=== PATIENT | female | born 1990 | race Caucasian/White ===

== ENCOUNTER 2018-04-29 21:10 | Emergency (ER) | payer BC, OTHER ==
[2018-04-29] MEDS ORDERED: diphenhydrAMINE 50 MG/ML VIAL ONE (22:11)
[2018-04-29] MEDS ORDERED: Ketorolac Tromethamine 30 MG/ML VIAL ONE (22:11)
[2018-04-29] MEDS ORDERED: Metoclopramide HCl 10 MG/2 ML VIAL ONE (22:11)
[2018-04-29 22:42] LABS: Hemoglobin 13.5 g/dL (12.0-16.0); Mean Corpuscular HGB CONC 34.2 g/dL (32.0-36.0); Mean Corpuscular Hemoglobin 30.3 pg (27.0-31.0); Mean Corpuscular Volume 88.7 fL (78.0-98.0); Mean Platelet Volume 7.6 fL (7.4-10.4); Platelet Count 354 thou/uL (130-400); RBC Distribution Width 11.5 % (11.5-14.5); Red Blood Cell (RBC) Count 4.47 mill/uL (4.20-5.40); White Blood Cell (WBC) Count 20.5 thou/uL (4.8-10.8)
[2018-04-29 22:57] LABS: Band 3 % (5-11); Eosinophils 3 % (0-10); Lymphocytes 13 % (21-51); MDiff Complete? YES; Monocytes 6 % (0-10); Neutrophil 74 % (42-75); Reactive Lymphocytes 1 % (0-10)
[2018-04-29 23:02] LABS: ALT (SGPT) 25 U/L (8-55); AST (SGOT) 18 U/L (5-34); Albumin 4.6 g/dL (3.5-5.0); Alkaline Phosphatase 121 U/L (40-150); Anion Gap 16 mmol/L (10-20); BUN (Urea Nitrogen) 12 mg/dL (7.0-18.7); Bilirubin, Total 0.3 mg/dL (0.2-1.2); Calc. Creatinine Clearance 0 mL/min (70-130); Calcium 9.9 mg/dL (7.8-10.44); Carbon Dioxide 23 mmol/L (22-29); Chloride 104 mmol/L (98-107); Estimated GFR-MDRD 89; Globulin 3.8 g/dL (2.4-3.5); Glucose 105 mg/dL (70-105); Potassium 3.8 mmol/L (3.5-5.1); Protein, Total 8.4 g/dL (6.0-8.3); Sodium 139 mmol/L (136-145)
[2018-04-29 23:26] LABS: Bilirubin Negative (Negative); Blood, Urine Small (Negative); Clarity CLEAR (Clear); Glucose, Urine (Dipstick) Negative (Negative); Leukocyte Negative (Negative); Nitrite Negative (Negative); Protein, Urine (Dipstick) Trace mg/dL (Neg-Trace); Specific Gravity, Urine 1.028 (1.002-1.036)
[2018-04-29 23:27] LABS: Bacteria/HPF None Seen HPF (None Seen); Hyaline Casts/LPF 0-3 HYALINE CAST LPF (0-3 Hyaline); Pathc Cast-AUWi Flag 0.58 (0-2.49); RBC/HPF 21-50 HPF (0-3); Squamous Epithelial 0-3 HPF (0-3); WBC/HPF 0-3 HPF (0-3)
[2018-04-29 23:28] LABS: Pregnancy Test - Urine (BHCG) Negative (Negative); Pregu Control Background? CLEAR/WHITE (CLR/WHITE); Pregu Control Bar Appear? YES (CONTROL BAR); Specific Gravity 1.028 (1.002-1.036)
--- NOTE | 2018-04-29 23:44 | RAD ---
TWO VIEW CHEST: 04/29/18 COMPARISON: 01/10/15 INDICATION: URI, pain. FINDINGS: There are mild linear densities at the left lung base. Right lung is clear. The cardiac silhouette is stable. There is an azygos lobe incidentally noted. Osseous structures are intact. IMPRESSION: Mild liner density at the left lung base. This could relate to crowding infrahilar vascular structure s or alternatively pneumonitis. Correlate clinically and if necessary followup imaging may be obtainangelo licea POS: SHADIA
== END 2018-04-30 00:40 | disposition home or self-care (01) ==
LOC: ERS 21:10
DX: J06.9 Acute upper respiratory infection, unspecified (principal); M54.2 Cervicalgia
CPT/HCPCS: 36415; 71046; 80053; 81003; 81015; 81025; 83605; 85025; 87040; 87804; 96365; 96375; J1200; J1885; J2765

== ENCOUNTER 2024-04-09 19:27 | Emergency (ER) | payer BC, SELFPAY ==
[~2024-04-09 19:27] MED LIST: Iopamidol-370 76% 500 ML MDV (1 ML CHARGE) ONE
[2024-04-09] MEDS ORDERED: Aspirin 325 MG TAB ONE (20:54)
[2024-04-09 21:03] LABS: #Basophils 0.08 10x3/uL (0.0-0.2); %Basophils 0.5 % (0.0-1.0); %Eosinophils 1.5 % (0.0-10.0); %Lymphocytes 18.1 % (21.0-51.0); %Monocytes 5.5 % (0.0-10.0); %Neutrophils 74.1 % (42.0-75.0); Hematocrit 43.5 % (36.0-47.0); Hemoglobin 14.8 g/dL (12.0-16.0); Mean Corpuscular Hemoglobin 29.8 pg (27.0-31.0); Mean Corpuscular Volume 87.7 fL (78.0-98.0); Platelet Count 458 10x3/uL (130-400); RBC Distribution Width 12.1 % (11.5-14.5); Red Blood Cell (RBC) Count 4.96 mill/uL (4.20-5.40)
[2024-04-09 21:16] LABS: ALT (SGPT) 36 U/L (8-55); AST (SGOT) 24 U/L (5-34); Albumin 4.8 g/dL (3.5-5.0); Alkaline Phosphatase 106 U/L (40-110); Anion Gap 19 mmol/L (10-20); BUN (Urea Nitrogen) 11 mg/dL (7.0-18.7); Bilirubin, Total 0.4 mg/dL (0.2-1.2); Calc. Creatinine Clearance 0 mL/min (70-130); Calcium 9.8 mg/dL (7.8-10.44); Carbon Dioxide 21 mmol/L (22-29); Chloride 106 mmol/L (98-107); Estimated GFR 105; Globulin 3.7 g/dL (2.4-3.5); Glucose 103 mg/dL (70-105); Potassium 3.8 mmol/L (3.5-5.1); Protein, Total 8.5 g/dL (6.0-8.3); Sodium 142 mmol/L (136-145)
[2024-04-09 21:17] LABS: Acetaminophen Less than 10 mcg/mL (Less than 10); Alcohol Less than 10.0 mg/dL (Less than 10); Salicylate Less than 8.0 mg/dL (Less than 8.0)
[2024-04-09 21:21] LABS: Troponin I 0.017 ng/mL (< 0.028)
[2024-04-09 21:23] LABS: BHCG - Serum Negative (NEGATIVE); Pregs Control Background? CLEAR/WHITE (CLR/WHITE); Pregs Control Bar Appear? YES (CONTROL BAR)
[2024-04-09 21:31] LABS: Bacteria/HPF None Seen HPF (None Seen); Bilirubin Negative (Negative); Blood, Urine Negative (Negative); CAUTI Indications for Culture Pelvic or flank pain; Clarity Clear (Clear); Glucose, Urine (Dipstick) Normal (Negative); Ketone, Urine 10 mg/dL (Negative); Leukocyte Negative Leu/uL (Negative); Nitrite Negative (Negative); Protein, Urine (Dipstick) Negative (Neg-Trace); RBC/HPF 0-3 HPF (0-3); Specific Gravity, Urine 1.027 (1.002-1.036); Squamous Epithelial 0-3 HPF (0-3); Urobilinogen Normal mg/dL (Less than 2); WBC/HPF 0-3 HPF (0-3)
[2024-04-09 21:34] LABS: Urine Culture Reflex No No
[2024-04-09 21:37] LABS: Amphetamine Not Detected (NotDetected); Barbiturates Screen Not Detected (NotDetected); Benzodiazepine Screen Not Detected (NotDetected); Cocaine Metabolite Screen Not Detected (NotDetected); Methadone Not Detected (NotDetected); Methamphetamine Not Detected (NotDetected); Opiate Screen Not Detected (NotDetected); Oxycodone Screen Not Detected (NotDetected); Phencyclidine (PCP) Not Detected (NotDetected); THC/Cannabinoid Screen Detected (NotDetected); Tricyclic Screen Not Detected (NotDetected)
== END 2024-04-09 23:42 | disposition home or self-care (01) ==
LOC: ERS 19:27
DX: R07.9 Chest pain, unspecified (principal); K80.20 Calculus of gallbladder without cholecystitis without obstruction; F41.9 Anxiety disorder, unspecified
CPT/HCPCS: 71045; 71275; 76705; 80053; 80306; 80307; 81001; 84484; 84703; 85025; 93005; Q9967